=== PATIENT | female | born 1975 | race Caucasian/White ===

== ENCOUNTER → 2017-01-26 | Outpatient (CLI) | payer OTHER | LOC: BRMIMAGING 12:06 | PROVIDERS: ATTEND Family Medicine | DX: S99.921A Unspecified injury of right foot, initial encounter (principal) | CPT/HCPCS: 73610-PO; 73630-PO ==

== ENCOUNTER 2017-09-04 00:02 | Emergency (ER) | payer OTHER ==
--- NOTE | 2017-09-04 00:06 | EDPHY ---
H & P Time Seen by Provider: 09/04/17 00:06 HPI/ROS: HPI CHIEF COMPLAINT: Right-sided flank abdominal pain. HISTORY OF PRESENT ILLNESS: 41-year-old female, presents emergency room with right flank right abdominal pain. She states 2 Wednesdays ago she was diagnosed with a 4 mm kidney stone she saw Dr. Bar with Urology. She was given prescriptions for Toradol, oxycodone, Zofran and Flomax. She states the stone was high up in her general ureteral track she now has pain in her right lower abdomen radiating down into her right suprapubic region. Associated nausea but no vomiting. Denies any fever. Patient states that the pain got rather severe tonight she could not tolerate it so she decided come the emergency room. She denies any fever, denies active vomiting, denies any burning when she urinates. Past Medical History: Extensive ovarian cyst history, anxiety, takes Xanax and clonazepam Past Surgical History: Total hysterectomy, appendectomy multiple ovarian cyst surgeries Social History: Denies daily use drugs, smokes tobacco daily 2 cigarettes per day. Family History: Noncontributory ROS REVIEW OF SYSTEMS: A comprehensive 10 point review of systems is otherwise negative aside from elements mentioned in the history of present illness. Exam Constitutional nontoxic. No acute distress triage nursing summary reviewed, vital signs reviewed, awake/alert. Eyes normal conjunctivae and sclera, EOMI, PERRLA. HENT normal inspection, atraumatic, moist mucus membranes, no epistaxis, neck supple/ no meningismus, no raccoon eyes. Respiratory clear to auscultation bilaterally, normal breath sounds, no respiratory distress, no wheezing. Cardiovascular rate normal, regular rhythm, no murmur, no edema, distal pulses normal. Gastrointestinal cannot elicit any significant tenderness on exam soft, non- tender, no rebound, no guarding, normal bowel sounds, no distension, no pulsatile mass. Genitourinary no CVA tenderness. Musculoskeletal no midline vertebral tenderness, full range of motion, no calf swelling, no tenderness of extremities, no meningismus, good pulses, neurovascularly intact. Skin pink, warm, & dry, no rash, skin atraumatic. Neurologic awake, alert and oriented x 3, AAOx3, moves all 4 extremities equally, motor intact, sensory intact, CN II-XII intact, normal cerebellar, normal vision, normal speech. Psychiatric normal mood/affect. Heme/Lymph/Immune no lymphadenopathy. Differential Diagnosis: Includes but is not limited to in a particular order urinary tract infection, infected kidney stone, pain cause from stone movement, hydroureter hydronephrosis Medical Decision Making: Plan for this patient is requesting IV pain medicine for pain control here in emergency room. He had IV will be established received IV fluids will check basic blood work, urinalysis, IV Dilaudid for pain control and re-evaluate. Re-evaluation: [id number]: Multiple doses of pain medicine IV narcotics were given in emergency for acute pain control the right flank pain. However after on further re- evaluation she complains that it did not really help. I did look her up on COPDMP: Extensive list over 52 prescriptions for narcotics and benzos. Most recently she was given 25 tabs of oxycodone on August 31, it is now September 04. Additionally was given 20 tabs of oxycodone on August 28. 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 08/31/2017 1 08/31/2017 OXYCODONE HCL 5 MG TABLET 25.[address] [facility] [id number] [facility] (3175) 0 31.25 [facility] 08/28/2017 1 08/28/2017 OXYCODONE HCL 5 MG TABLET 20.0 2 BAKER VIVI [id number] [facility] (0010) 0 75.0 [facility] 08/25/2017 1 08/25/2017 OXYCODONE HCL 5 MG TABLET 30.0 5 [facility]AKER [facility]IVI [id number] [facility] (0010) 0 45.0 [facility] 08/25/2017 1 06/20/2017 ALPRAZOLAM 1 MG TABLET 60.0 20 [address] AL[facility] [id number] [facility] (0010) 2 [facility] 08/24/2017 1 08/23/2017 OXYCODONE HCL 5 MG TABLET 10.0 2 DA LEV [id number] [facility] (0010) 0 37.5 [facility] 08/06/2017 1 06/20/2017 CLONAZEPAM 0.5 MG TABLET 30.0 15 SE ALICE [id number] [facility] (0010) 1 [facility] 08/04/2017 1 06/20/2017 ALPRAZOLAM 1 MG TABLET 60.0 20 SE ALICE [id number] [facility] (0010) 1 [facility] [place] Additionally please see [place] PDMP list she has over 52 prescriptions prescribed by 9 prescribers 3 pharmacies. Extensive list of narcotics, clonazepam, Xanax, and oxycodone. 0330: [facility] and I explained that I cannot prescribe her any further narcotics. Here in the emergency room her ultrasound did not reveal kidney stone or hydroureter. I do recommend she follows up with Urology for ongoing flank pain additionally follow up with her primary care doctor. Her urinalysis I did send a culture. Will prescribe Keflex and peridium. Return precautions discussed with her. Additionally the ultrasound showed liver cyst that need for further evaluation on outpatient basis which I discussed with her however she states that she already knows about these and has had numerous CT scans and has had liver cyst since a young age. Discussed return precautions with her. Recommend following up with primary care doctor as well as Urology. I have declined to prescribe her any narcotics. Additionally she received multiple doses of Dilaudid here in the emergency room without great relief. However vital signs stable. Blood work reviewed. Ultrasound reviewed. Declined any further imaging. Source: Patient Constitutional: Initial Vital Signs Temperature (C) 36.8 C 09/04/17 00:04 Heart Rate 106 H 09/04/17 00:04 Respiratory Rate 16 09/04/17 00:04 Blood Pressure 109/72 09/04/17 00:04 O2 Sat (%) 98 09/04/17 00:04 O2 Delivery Mode Room Air Allergies/Adverse Reactions: acetaminophen [From Tylenol] Allergy (Verified 09/04/17 00:07) morphine Allergy (Verified 09/04/17 00:07) Penicillins Allergy (Verified 09/04/17 00:07) prochlorperazine [From Compazine] Allergy (Verified 09/04/17 00:07) Home Medications: Medication Instructions Recorded Cephalexin [Keflex] 500 mg PO Q6H #28 cap 09/04/17 Phenazopyridine HCl [Pyridium] 200 mg PO TID #15 tab 09/04/17 Medical Decision Making - Data Points Laboratory Results: Laboratory Results 09/04/17 00:36 09/04/17 00:36 09/04/17 09/04/17 09/04/17 00:36 00:36 00:36 WBC 7.56 10^3/uL 10^3/uL (3.80-9.50) RBC 3.97 10^6/uL L 10^6/uL (4.18-5.33) Hgb 12.4 g/dL L g/dL (12.6-16.3) Hct 36.1 % L % (38.0-47.0) MCV 90.9 fL fL (81.5-99.8) MCH 31.2 pg pg (27.9-34.1) MCHC 34.3 g/dL g/dL (32.4-36.7) RDW 12.9 % % (11.5-15.2) Plt Count 315 10^3/uL 10^3/uL (150-400) MPV 9.0 fL fL (8.7-11.7) Neut % (Auto) 54.0 % % (39.3-74.2) Lymph % (Auto) 34.1 % % (15.0-45.0) Potter % (Auto) 6.9 % % (4.5-13.0) Eos % (Auto) 3.7 % % (0.6-7.6) Baso % (Auto) 0.8 % % (0.3-1.7) Nucleat RBC Rel Count 0.0 % % (0.0-0.2) Absolute Neuts (auto) 4.08 10^3/uL 10^3/uL (1.70-6.50) Absolute Lymphs (auto) 2.58 10^3/uL 10^3/uL (1.00-3.00) Absolute Monos (auto) 0.52 10^3/uL 10^3/uL (0.30-0.80) Absolute Eos (auto) 0.28 10^3/uL 10^3/uL (0.03-0.40) Absolute Basos (auto) 0.06 10^3/uL 10^3/uL (0.02-0.10) Absolute Nucleated RBC 0.00 10^3/uL 10^3/uL (0-0.01) Immature Gran % 0.5 % % (0.0-1.1) Immature Gran # 0.04 10^3/uL 10^3/uL (0.00-0.10) Sodium 141 mEq/L mEq/L (135-145) Potassium 3.8 mEq/L mEq/L (3.3-5.0) Chloride 112 mEq/L H mEq/L (97-110) Carbon Dioxide 24 mEq/l mEq/l (22-31) Anion Gap 5 mEq/L L mEq/L (8-16) BUN 7 mg/dL mg/dL (7-23) Creatinine 0.6 mg/dL mg/dL (0.6-1.0) Estimated GFR > 60 Glucose 104 mg/dL H mg/dL (70-100) Calcium 9.4 mg/dL mg/dL (8.5-10.4) Total Bilirubin 0.4 mg/dL mg/dL (0.1-1.4) Conjugated Bilirubin 0.3 mg/dL mg/dL (0.0-0.5) Unconjugated Bilirubin 0.1 mg/dL mg/dL (0.0-1.1) AST 17 IU/L IU/L (14-46) ALT 22 IU/L IU/L (9-52) Alkaline Phosphatase 57 IU/L IU/L (38-126) Total Protein 6.5 g/dL g/dL (6.3-8.2) Albumin 3.9 g/dL g/dL (3.5-5.0) Lipase 99 IU/L IU/L (23-300) Beta HCG, Qual NEGATIVE Urine Color Urine Appearance Urine pH Ur Specific [place] Urine Protein Urine Ketones Urine Blood Urine Nitrate Urine Bilirubin Urine Urobilinogen Ur Leukocyte Esterase Urine RBC Urine WBC Ur Epithelial Cells Urine Bacteria Urine Glucose 09/04/17 00:21 WBC RBC Hgb Hct MCV MCH MCHC RDW Plt Count MPV Neut % (Auto) Lymph % (Auto) Potter % (Auto) Eos % (Auto) Baso % (Auto) Nucleat RBC Rel Count Absolute Neuts (auto) Absolute Lymphs (auto) Absolute Monos (auto) Absolute Eos (auto) Absolute Basos (auto) Absolute Nucleated RBC Immature Gran % Immature Gran # Sodium Potassium Chloride Carbon Dioxide Anion Gap BUN Creatinine Estimated GFR Glucose Calcium Total Bilirubin Conjugated Bilirubin Unconjugated Bilirubin AST ALT Alkaline Phosphatase Total Protein Albumin Lipase Beta HCG, Qual Urine Color YELLOW Urine Appearance CLEAR Urine pH 7.0 (5.0-7.5) Ur Specific [place] 1.004 (1.002-1.030) Urine Protein NEGATIVE (NEGATIVE) Urine Ketones NEGATIVE (NEGATIVE) Urine Blood 3+ H (NEGATIVE) Urine Nitrate NEGATIVE (NEGATIVE) Urine Bilirubin NEGATIVE (NEGATIVE) Urine Urobilinogen NEGATIVE EU EU (0.2-1.0) Ur Leukocyte Esterase NEGATIVE (NEGATIVE) Urine RBC 25-50 /hpf H /hpf (0-3) Urine WBC 5-10 /hpf H /hpf (0-3) Ur Epithelial Cells TRACE /lpf /lpf (NONE-1+) Urine Bacteria TRACE /hpf H /hpf (NONE SEEN) Urine Glucose NEGATIVE (NEGATIVE) Medications Given: Discontinued Medications Hydromorphone HCl (Dilaudid) 0.5 mg IVP EDNOW ONE Stop: 09/04/17 00:17 Last Admin: 09/04/17 00:34 Dose: 0.5 mg Hydromorphone HCl (Dilaudid) 0.5 mg IVP EDNOW ONE Stop: 09/04/17 01:22 Last Admin: 09/04/17 01:23 Dose: 0.5 mg Sodium Chloride (Ns) 1,000 mls @ 0 mls/hr IV EDNOW ONE; Wide Open PRN Reason: Protocol Stop: 09/04/17 00:17 Last Admin: 09/04/17 00:34 Dose: 1,000 mls Ceftriaxone Sodium/Dextrose (Rocephin 1 Gm (Premix)) 50 mls @ 100 mls/hr IV EDNOW ONE PRN Reason: Protocol Stop: 09/04/17 01:28 Last Admin: 09/04/17 01:08 Dose: 50 mls Ketorolac Tromethamine (Toradol) 15 mg IVP EDNOW ONE Stop: 09/04/17 00:59 Last Admin: 09/04/17 01:23 Dose: Not Given Ketorolac Tromethamine (Toradol) 15 mg IVP EDNOW ONE Stop: 09/04/17 02:39 Last Admin: 09/04/17 02:41 Dose: 15 mg Ondansetron HCl (Zofran) 4 mg IVP EDNOW ONE Stop: 09/04/17 00:17 Last Admin: 09/04/17 00:34 Dose: 4 mg Departure - Departure Disposition: Home, Routine, Self-Care Clinical Impression: Flank pain Condition: Good Instructions: Urinary Tract Infection in Women (ED), Renal Colic (ED) Additional Instructions: 1. Drink lots of fluids stay well-hydrated 2. Return emergency room if you have worsening pain. Return if he develops a fever vomiting or not feeling well Referrals: Dominguez Gomez PA [Primary Care Provider] - As per Instructions Augie Bar MD [Medical Doctor] - As per Instructions Prescriptions: Cephalexin [Keflex] 500 mg PO Q6H #28 cap Phenazopyridine HCl [Pyridium] 200 mg PO TID #15 tab
[2017-09-04] MEDS ORDERED: NS 1,000 ML IV ONE (00:16)
[2017-09-04] MEDS ORDERED: ONDANSETRON 4 MG/2 ML VIAL IVP ONE (00:16)
[2017-09-04] MEDS ORDERED: HYDROmorphONE/DILAUDID 2 MG/ML INJ IVP ONE ×2 (00:16→01:21)
[2017-09-04] MEDS ORDERED: KETOROLAC 15 MG/1 ML SDV IVP ONE ×2 (00:58→02:38)
[2017-09-04 00:59] LABS: PLATELET COUNT 315 10^3/uL (150-400)
[2017-09-04] MEDS ORDERED: HYDROmorphONE/DILAUDID 1 MG/ML INJ ONE (01:21)
[2017-09-04 03:43] VITALS: BP 95/70
== END 2017-09-04 03:46 | disposition home or self-care (01) ==
DX: R10.9 Unspecified abdominal pain (principal); E86.9 Volume depletion, unspecified; F17.210 Nicotine dependence, cigarettes, uncomplicated; Z90.710 Acquired absence of both cervix and uterus; Z90.89 Acquired absence of other organs
CPT/HCPCS: 96365; J0696; J1170; J1885; J2405